=== PATIENT | female | born 1990 | race Caucasian/White ===

== ENCOUNTER 2017-03-16 23:51 | Emergency (ER) | payer BC ==
[~2017-03-16] VITALS: Ht 154.9 cm; Wt 49.0 kg
[~2017-03-16 23:51] MED LIST: AMOXICILLIN500 M2 PO; ANAPROX DS550 MG PO; HYDROCODON-ACE1 EA17 PO; IBUPROFEN200 M2 PO; NO MEDICATIONS; NORCO 5-325 TA1 EACH PO; NORCO 7.5-3251 EACH PO; OXYCODONE HCL5 M1 PO; SKELAXIN800 M3 PO; TRAMADOL HCL50 M2 PO; TYLENOL EXTRA500 M1 PO; ULTRAM50 M1 PO; ZOFRAN ODT4 MG/UDTAB PO; [UNRECOGNIZED DRUG - REMARK]
[2017-03-17 00:47] LABS: BASO % 0.2 % (0-2); EOS % 0.5 % (0-7); EOSINOPHIL ABSOLUTE COUNT 0.1 tho/cmm (0.0-0.7); HCT-HEMATOCRIT 35.8 % (34.0-49.0); HGB-HEMOGLOBIN 12.9 gm/dl (12.0-15.5); IMMATURE GRANULOCYTES ABSOLUTE 0.02 tho/cmm (0-0.03); IMMATURE GRANULOCYTES PERCENT 0.2 % (0-0.3); LYMPH % 12.4 % (20-45); LYMPH ABSOLUTE COUNT 1.6 tho/cmm (0.8-4.5); MCH (MEAN CORPUSCULAR HGB) 30.7 pg (28.0-32.0); MCV (MEAN CELL VOLUME) 85.2 fl (82.0-96.0); MONO % 5.2 % (0-12); MONOCYTE ABSOLUTE COUNT 0.7 tho/cmm (0.0-1.2); NEUTROPHIL ABSOLUTE COUNT 10.2 tho/cmm (1.6-8.0); NEUTROPHIL-AUTOMATED 10.2 tho/cmm (1.6-8.0); NEUTROPHILS % 81.5 % (40-80); PLATELET COUNT 224 tho/cmm (150-450); RED CELL DISTRIBUTION WIDTH 12.5 % (12.4-16.4); WHITE BLOOD COUNT 12.6 tho/cmm (4.0-10.0)
[2017-03-17 01:02] LABS: ANION GAP 10 mmol/L (0-20); BLOOD UREA NITROGEN 10 mg/dl (6-24); CALCIUM 8.4 mg/dl (8.5-10.5); CARBON DIOXIDE-VENOUS 22 mmol/L (22-32); CHLORIDE 108 mmol/l (96-110); GLUCOSE 90 mg/dL (70-110); POTASSIUM 3.6 mmol/L (3.7-5.1); SODIUM 136 mmol/L (135-145); eGFR VALUE FOR BLACK >90 mL/Min
[2017-03-17] MEDS ORDERED: VENTOLIN HFA18 G2 PO (03:49)
[2017-03-17] MEDS ORDERED: PREDNISONE20 M1 PO (03:49)
[2017-03-17] MEDS ORDERED: SPACE CHAMBER1 EACH MC (03:49)
[2017-03-17] MEDS ORDERED: ZOFRAN4 M2 PO (03:49)
== END 2017-03-17 04:21 ==
LOC: EDMED 23:51
PROVIDERS: Physician Assistant
DX: J20.9 Acute bronchitis, unspecified (principal); R11.2 Nausea with vomiting, unspecified; R19.7 Diarrhea, unspecified; F41.9 Anxiety disorder, unspecified; F17.200 Nicotine dependence, unspecified, uncomplicated
CPT/HCPCS: J2060; J2405; J7030; Q9967